=== PATIENT | female | born 1950 | race Caucasian/White ===

== ENCOUNTER 2017-05-17 15:10 | Emergency (ER) | payer MEDICARE ==
[2017-05-17 15:32] VITALS: BP 117/71
--- NOTE | 2017-05-17 18:46 | UC ---
João Webb Alfonso, scribed for Jorje Castillo MD on 05/17/17 at 1653 . UC General HPI - HPI Summary HPI Summary: This patient is a 67 year old F presenting to [facility] accompanied by with a chief complaint of possible allergic reaction to doxycycline since one week ago. Pt reports finding a tick on her right muslim on 05/02. Pt was prescribed doxycycline on 05/08 by another urgent care. Pt reports she stopped taking doxycycline yesterday secondary to her symptoms. Symptoms aggravated and alleviated by nothing. Pt reports erythema, cold hands, hand tingling, skin burning, and nausea. Pt denies headache, neck pain, syncope, and arthralgia. NKDA. Pt medications reviewed this visit. - History of Current Complaint Chief Complaint: UCGeneralIllness Stated Complaint: TINGLING IN FINGERS Time Seen by Provider: 05/17/17 16:31 Hx Obtained From: Patient Onset/Duration: Sudden Onset, Lasting Weeks - One week Timing: Constant Onset Severity: Moderate Current Severity: Moderate Aggravating: Nothing Alleviating: Nothing Associated Signs & Symptoms: Positive: Other - Positive erythema, cold hands, hand tingling, skin burning, and nausea; negative headache, neck pain, syncope, and arthralgia. - Allergy/Home Medications Home Medications: Home Medications DOXYcycline CAP(*) [DOXYcycline 100MG CAP(*)] 100 mg PO BID 05/17/17 [History Confirmed 05/17/17] Dorzolamide 2% OPTH (NF) [Trusopt 2% OPTH (NF)] 05/17/17 [History] Latanoprost 0.005%* [Xalatan 0.005%*] 1 drop BOTH EYES QPM 05/17/17 [History Confirmed 05/17/17] Levothyroxine TAB* [Synthroid 88 MCG TAB*] 05/17/17 [History] PMH/Surg Hx/FS Hx/Imm Hx - Surgical History Surgical History: Yes Surgery Procedure, Year, and Place: eye. ovarian cyst. thyroid - Family History Known Family History: Positive: Cardiac Disease, Diabetes - Social History Alcohol Use: Daily Substance Use Type: None Smoking Status (MU): Never Smoked Tobacco Review of Systems Skin: Other - Positive erythema, skin burning Gastrointestinal: Nausea Musculoskeletal: Other: - Negative neck pain, arthralgia Neurological: Other - Positive cold hands, hand tingling; negative headache, syncope All Other Systems Reviewed And Are Negative: Yes Physical Exam Triage Information Reviewed: Yes Appearance: Well-Appearing, No Pain Distress Vital Signs: Initial Vital Signs Temp 98.9 F 05/17/17 15:22 Pulse 61 05/17/17 15:22 Resp 16 05/17/17 15:22 BP 117/71 05/17/17 15:22 Pulse Ox 99 05/17/17 15:22 Vital Signs Reviewed: Yes Eyes: Positive: Other: - EOMI, NIMA ENT: Positive: Normal ENT inspection Neck: Positive: Supple, Nontender Respiratory: Positive: Other: - CTA, breath sounds present Cardiovascular: Positive: RRR Abdomen Description: Positive: Nontender, Soft Bowel Sounds: Positive: Present Musculoskeletal: Positive: Strength Intact, ROM Intact Neurological: Positive: Other: - normal, sensory/motor intact, A&O x3 Psychological: Positive: Age Appropriate Behavior Skin: Positive: Other - Erythematous circular rash at right muslim scalp 3 cm in diameter. Course/Dx - Course Course Of Treatment: B/L HAND PARESTHESIAS IMPROVED AFTER STOPPING DOXY (WAS ON IT FOR 9 DAYS). RASH WHERE TICK REMOVED ON RT SCALP REMAINS. RX AMOX 500MG PO TID X 12 DAYS. - Differential Dx - Multi-Symptom Provider Diagnoses: LYME DISEASE. PARESTHESIA B/L HANDS IMPROVED. Discharge - Discharge Plan Condition: Stable Disposition: HOME Prescriptions: Amoxicillin PO (*) [Amoxicillin 500 MG CAP*] 500 mg PO TID #36 cap Patient Education Materials: Lyme Disease (ED) Ref[place]: [facility] [[place]] Additional Instructions: FOLLOW UP WITH YOUR DOCTOR. GET RECHECKED FOR ANY WORSENING OF YOUR CONDITION OR QUESTIONS OR CONCERNS. The documentation as recorded by the João jessica Alfonso accurately reflects the service I personally performed and the decisions made by me, Jorje Castillo MD.
== END 2017-05-17 17:10 | disposition home or self-care (01) ==
LOC: UCEAST 15:10
DX: A69.20 Lyme disease, unspecified (principal); R20.2 Paresthesia of skin; T36.4X5A Adverse effect of tetracyclines, initial encounter; Y92.9 Unspecified place or not applicable
CPT/HCPCS: 86618; 99202; G0463

== ENCOUNTER 2018-05-06 15:16 | Emergency (ER) | payer BC, MEDICARE ==
[2018-05-06 15:49] VITALS: BP 102/62
--- NOTE | 2018-05-06 15:57 | ED ---
Lower Extremity - HPI Summary HPI Summary: 68-year-old female presents with left ankle and right knee injury yesterday. States she was going down the stairs and she tripped and rolled her ankle. She has pain over her left lateral foot and ankle. She denies any left knee pain. She states that she landed on her right knee. She states she has no pain at rest but when she places all of her weight on that knee it feels unsteady. It has not given out. No popping or locking. She has been having to place weight on the right knee because she cannot put weight on left ankle. She denies any previous fractures to this area. No other injury. - History of Current Complaint Pain Intensity: 0 <Valarie Zamora - Last Filed: 05/06/18 16:57> <Ching Noble - Last Filed: 05/06/18 17:01> - History of Current Complaint Chief Complaint: UCLowerExtremity Stated Complaint: L FOOT INJURY Time Seen by Provider: 05/06/18 15:53 - Allergies/Home Medications Allergies/Adverse Reactions: Allergies Allergy/AdvReac Type Severity Reaction Status Date / Time No Known Allergies Allergy Verified 05/06/18 15:32 Home Medications: Home Medications Dorzolamide/Timolol/Pf [Cosopt Pf Eye Drops] 1 each OP DAILY 05/06/18 [History Confirmed 05/06/18] Levothyroxine TAB* [Synthroid TAB*] 75 mcg PO DAILY 05/06/18 [History Confirmed 05/06/18] Propranolol TAB* [Inderal TAB*] 20 mg PO DAILY PRN 05/06/18 [History Confirmed 05/06/18] PMH/Surg Hx/FS Hx/Imm Hx Endocrine/Hematology History: Reports: Hx Thyroid Disease Respiratory History: Reports: Hx Asthma - Surgical History Surgery Procedure, Year, and Place: bilat. eyes 1995. ovarian cyst - Infectious Disease History: Yes Infectious Disease History: Reports: Hx Shingles Denies: Traveled Outside the [place] in Last 30 Days - Family History Known Family History: Positive: Cardiac Disease, Diabetes - Social History Alcohol Use: Daily Alcohol Amount: 1 glass wine / day Substance Use Type: Reports: None Smoking Status (MU): Never Smoked Tobacco <Valarie Zamora - Last Filed: 05/06/18 16:57> Review of Systems Negative: Fever Negative: Chest Pain Negative: Shortness Of Breath Positive: Myalgia - left ankle and right knee All Other Systems Reviewed And Are Negative: Yes <Valarie Zamora - Last Filed: 05/06/18 16:57> Physical Exam Triage Information Reviewed: Yes Vital Signs On Initial Exam: Initial Vitals Temp Pulse Resp BP Pulse Ox 98.9 F 52 16 102/62 98 05/06/18 15:37 05/06/18 15:37 05/06/18 15:37 05/06/18 15:37 05/06/18 15:37 Vital Signs Reviewed: Yes Appearance: Positive: Well-Appearing Skin: Positive: Warm, Dry Head/Face: Positive: Normal Head/Face Inspection Eyes: Positive: Normal, Conjunctiva Clear ENT: Positive: Pharynx normal Respiratory/Lung Sounds: Positive: Clear to Auscultation, Breath Sounds Present Cardiovascular: Positive: Normal, RRR Musculoskeletal: Positive: Strength/ROM Intact - right knee, Limited @ - left ankle, Edema Left - malleolus, Other - Tenderness over left lateral malleolus, good pulses, cap refill less than 2 seconds, nontender over right knee, negative ballottement, no laxity to right knee Neurological: Positive: Normal Psychiatric: Positive: Normal <Valarie Zamora - Last Filed: 05/06/18 16:57> Vital Signs On Initial Exam: Initial Vitals Temp Pulse Resp BP Pulse Ox 98.9 F 52 16 102/62 98 05/06/18 15:37 05/06/18 15:37 05/06/18 15:37 05/06/18 15:37 05/06/18 15:37 <Ching Noble - Last Filed: 05/06/18 17:01> Procedures - Splinting left foot Location: left foot Hand-Made Type: orthoglass Splint: posterior walking Pre-Proc Neuro Vasc Exam: normal Post-Proc Neuro Vasc Exam: normal <Valarie Zamora - Last Filed: 05/06/18 16:57> Diagnostics - Vital Signs Vital Signs Temp Pulse Resp BP Pulse Ox 05/06/18 15:37 98.9 F 52 16 102/62 98 - Radiology foot/ankle Xray Interpretation: Positive (See Comments) Radiology Interpretation Completed By: Radiologist knee Xray Interpretation: No Acute Changes Radiology Interpretation Completed By: Radiologist <Valarie Zamora - Last Filed: 05/06/18 16:57> - Vital Signs Vital Signs Temp Pulse Resp BP Pulse Ox 05/06/18 15:37 98.9 F 52 16 102/62 98 <Ching Noble - Last Filed: 05/06/18 17:01> Lower Extremity Course/Dx - Course Course Of Treatment: 68-year-old female presents with left ankle and right knee injury yesterday. States she was going down the stairs and she tripped and rolled her ankle. She has pain over her left lateral foot and ankle. She denies any left knee pain. She states that she landed on her right knee. She states she has no pain at rest but when she places all of her weight on that knee it feels unsteady. It has not given out. No popping or locking. She has been having to place weight on the right knee because she cannot put weight on left ankle. She denies any previous fractures to this area. No other injury. On exam ecchymosis to the left lateral malleolus. Neurovascular intact. Nontender right knee. Negative ballottement. No laxity noted to right knee. X -ray shows fracture of 5th metacarpal. knee xray normal. place in posterior walking splint. told to follow up with ortho in her hometown. patient understand and agrees with plan. - Diagnoses Differential Diagnosis/HQI/PQRI: Positive: Fracture (Closed), Sprain, Strain <Valarie Zamora - Last Filed: 05/06/18 16:57> <Ching Noble - Last Filed: 05/06/18 17:01> - Diagnoses Provider Diagnoses: Fall, Right knee pain, Fracture of fifth metacarpal bone of left hand Discharge - Sign-Out/Discharge Documenting (check all that apply): Discharge/Admit/Transfer - Billing Disposition and Condition Condition: GOOD Disposition: Home <Valarie Zamora - Last Filed: 05/06/18 16:57> - Billing Disposition and Condition Condition: GOOD Disposition: Home <Ching Noble - Last Filed: 05/06/18 17:01> - Discharge Plan Condition: Good Disposition: HOME Patient Education Materials: Foot Fracture in Adults (ED) Referrals: Marlen Dominique MD [Medical Doctor] - [facility] [place] [facility] [place]] Additional Instructions: Use crutches and stay nonweight bearing Keep splint on area and keep dry Call ortho office to set up appointment for follow up Use ibuprofen or tyenlol for pain every 6 hours a Ice, elevate Return to ED if develop any new or worsening symptoms Attestation Statement User Type: Provider - I was available for consult. This patient was seen by the [facility]. The patient was not presented to, seen by, or examined by me. -Ramez <Ching Noble - Last Filed: 05/06/18 17:01>
--- NOTE | 2018-05-06 16:38 | RAD ---
Indication: Left Ankle injury. 4 views of left foot demonstrates fracture of the fifth metacarpal base. No significant displacement is noted. IMPRESSION: Fracture base of the fifth metatarsal.
--- NOTE | 2018-05-06 16:39 | RAD ---
Indication: Left ankle pain. 3 views of left ankle demonstrates no fracture or dislocation. Ankle mortise is intact. There is a fracture at the base of the fifth metacarpal. Probable dorsal osteophyte noted in the proximal navicular. IMPRESSION: Ankle mortise is intact. Fracture base of the fifth metacarpal. Probable osteophyte arising from the dorsal aspect of the navicular.
--- NOTE | 2018-05-06 16:44 | RAD ---
Indication: Right knee injury. 4 views of the right knee demonstrates no fracture. No other bone or joint abnormality is identified. IMPRESSION: No fracture of the right knee is noted.
== END 2018-05-06 17:05 | disposition home or self-care (01) ==
LOC: UCEAST 15:16
DX: S62.347A Nondisplaced fracture of base of fifth metacarpal bone, left hand, initial encounter for closed fracture (principal); W10.9XXA Fall (on) (from) unspecified stairs and steps, initial encounter; Y93.9 Activity, unspecified; Y92.9 Unspecified place or not applicable; M25.561 Pain in right knee; E07.9 Disorder of thyroid, unspecified; J45.909 Unspecified asthma, uncomplicated; Z82.49 Family history of ischemic heart disease and other diseases of the circulatory system; Z83.3 Family history of diabetes mellitus
CPT/HCPCS: 99212; G0463